=== PATIENT | male | born 1945 | race African-American/Black ===

== ENCOUNTER 2017-03-19 17:36 | Inpatient (IN) ==
--- NOTE | 2017-03-19 17:46 | Emergency Department Note ---
Disposition Clinical Impression: Opioid overdose Qualifiers: Encounter type: initial encounter Injury intent: accidental or unintentional Qualified Code(s): T40.2X1A - Poisoning by other opioids, accidental ( unintentional), initial encounter Altered mental status Qualifiers: Altered mental status type: unspecified Qualified Code(s): R41.82 - Altered mental status, unspecified Disposition: Admitted As Inpatient Condition: Fair [facility] Care Provider[facility] - Forms: ED Satisfaction Letter Time of Disposition: 22:28 Altered Mental Status HPI - General Chief Complaint: ED Altered Mental Status Stated Complaint: AMS Time Seen by Provider: 03/19/17 17:39 - History of Present Illness HPI Narrative: Mr. Weston, 72-year-old male, presents from the [place] for strokelike symptoms. He was given pain medication for neck pain and, on reassessment, was found to be somnolent, altered mentation, left-sided weakness. [facility] physician was concern for stroke and patient was transferred to this facility. Last known well: 14:20 [facility] 2016 patient had left parietal craniotomy secondary to nontraumatic intracranial hemorrhage for which he has subsequent chronic hemiplegia and hemiparesis. 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, seizure disorder, hypertension, history of prostate cancer, history of PTSD and reactive psychosis , COPD, emphysema Antiplatelet: Aspirin 81 mg by mouth daily Anticoagulant: None ROS: Not obtainable secondary to patient's mental status - Related Data Home Medications Medication Instructions Recorded Confirmed Aspirin 81 mg PO DAILY 10/01/15 10/01/15 Benztropine Mesylate 0.5 mg PO TID 10/01/15 10/01/15 Carbidopa/Levodopa [Carbidopa-Levo 1 tab PO TID 10/01/15 10/01/15 ER 25-100 Tab] Gabapentin [Neurontin] 600 mg PO HS 10/01/15 10/01/15 Ibuprofen [Motrin] 600 mg PO Q6HR PRN 10/01/15 10/01/15 Lisinopril/Hydrochlorothiazide 1 tab PO DAILY 10/01/15 10/01/15 [Zestoretic 10-12.5 mg Tablet] Meclizine [Antivert] 12.5 mg PO TID PRN 10/01/15 10/01/15 Melatonin [Melatin] 3 mg PO HS PRN 10/01/15 10/01/15 Multivitamin [Multivitamins] 1 tab PO DAILY 10/01/15 10/01/15 Oxazepam [Serax] 10 mg PO HS 10/01/15 10/01/15 PHENobarbital [Phenobarbital] 32.4 mg PO HS 10/01/15 10/01/15 Perphenazine [Trilafon] 2 mg PO HS 10/01/15 10/01/15 Phenytoin ER [Dilantin ER] 100 mg PO BID 10/01/15 10/01/15 Quetiapine Fumarate [Seroquel] 100 mg PO HS 10/01/15 10/01/15 Sertraline [Zoloft] 50 mg PO DAILY 10/01/15 10/01/15 Simvastatin [Zocor] 40 mg PO HS 10/01/15 10/01/15 Vitamin E 400 unit PO DAILY 10/01/15 10/01/15 Previous Rx's Medication Instructions Recorded Azithromycin [Zithromax] 500 mg PO Q24H #7 tablet 10/03/15 Ipratropium/Albuterol Sulfate 4 gm IH Q6H #2 aer.w.adap 10/03/15 [Combivent Respimat Inhal [place]] Cephalexin [Keflex] 500 mg PO TID #30 capsule 12/13/16 Allergies Allergy/AdvReac Type Severity Reaction Status Date / Time Oxytetracycline Allergy Hives Verified 10/01/15 11:52 [From Terramycin] Penicillins Allergy Hives Verified 10/01/15 11:52 Tetracycline Allergy Hives Verified 10/01/15 11:52 Limitations: ROS unobtainable due to patients medical condition Past Medical History - Past Medical History Medical history: Reports: cancer, CVA, hypertension, seizures, other Surgical history: Reports: non-contributory Psychiatric history: Reports: depression, PTSD - Social History Smoking Status: Former smoker Smokeless Tobacco Status: No Alcohol use: Reports: none Drug use: Reports: none Physical Exam Patient arrives via [place] fire department. His eyes are closed and he moans. Eyes open to sternal rub, equals are pinpoint and nonreactive. We provided 2 mg IV Narcan after which patient spontaneously opens his eyes. He is responsive to and localizes to pain. He does have left-sided facial droop however, with history of CVA and no family bedside, unsure if this is new or chronic. Code stroke called. Course Course Narrative: 18:05 [place] radiology No hemorrhage. Chronic findings detailed in his report. I discussed the patient with [facility] neurologist, Dr. Cisneros. We discussed the patient's history and presenting symptoms. Suspicion is from opiate caused altered mentation. He recommends CTA head and neck while in the ED. If there is a stenosis, then re-consult [facility] neurology. If not, then admit to [facility] for MRI. [facility] neurologist feels no need to use the helicopter. As of right now, code stroke is canceled. I discussed the patient with his son bedside using agreement with the plan of care. He is no additional questions at this time. Patient notes that both of his arms are hurting. Will provide Toradol and avoid opiates at this time given his initial presentation Patient's son, Michael Weston ALBINO RN, his bedside. He was updated to the situation and is agreement with the current plan of care. With the results of the CTA head and neck, I called [facility] transfer center and again spoke with Dr. Cisneros. 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 Dr. Cisneros believes this is an incidental finding and was not contributory to the patient's symptoms were treated earlier described. While on the phone call, we also had a 3-way conversation involving Dr. Flynn, [facility]. We discussed the patient, his findings, and previous clinical picture. Both Dr. Cisneros and Dr. Flynn agree this is no emergent. However, Dr. Flynn has taken the patient's name and his neurosurgery clinic will be calling the patient to schedule outpatient follow-up. I discussed the above with the patient and his son at bedside. What remains, is continued workup for the patient's initial presentation. There are no agreement for admission to this hospital with MRI. Per his son, patient is an aspiration risk. He should be on honey thick liquids , however patient refuses those foods. Michael has given the [facility] permission to provide a full diet on the condition that patient is sitting upright in a chair to minimize aspiration risk. I discussed the above with the admitting hospitalist. He agrees to accept the patient for continued evaluation and management. Head CT 03/19/17 17:39 IMPRESSION: 1. No acute intracranial abnormality. Stable appearing CT head compared to 12/13/2016 2. Presumed densely calcified aneurysm extending superior from the left supraclinoid region. Meningioma could potentially have this appearance. 3. Remote left frontotemporal craniotomy and right occipital craniectomy. Correlate with surgical history. Per stroke alert protocol stat results were phoned to Dr. Tyrese Chung Via phone 03/19/2017 6:03 pm. 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 There is a small residual noncalcified component with a triangular configuration noted best on axial image 44. Small lobulation along the posteromedial aspect of the distal right internal carotid artery as noted above. Although this could represent an infundibulum for the posterior communicating artery, there is no definitive artery arising from this nodule. A small aneurysm at this site should be considered. Otherwise no significant arterial narrowing. D/ / Cecil Whitney / Cecil Whitney Interpreting Provider: Cecil Whitney Neck CTA 03/19/17 18:19 IMPRESSION: Unremarkable CTA of the neck. Right lung lesion. CT chest recommended. Right thyroid lesion. This is likely benign. No follow-up imaging is necessary RECOMMENDATIONS: Managing Incidental Thyroid Nodule Detected at CT or MRI or US 1. Further evaluation by thyroid Ultrasound recommended for these incidental nodules: Patient Age 18 years or less - Any nodule. Patient Age 19-34 years old - Nodule 1 cm in size or greater Patient Age 35 years or more - Nodule 1.5 cm in size or greater 2. Follow up thyroid ultrasound also recommend in these scenarios -Solitary nodule with high risk imaging features (locally invasive nodule or suspicious lymph nodes) -Any nodule in a heterogeneous enlarged thyroid gland 3. NO further imaging is recommended in the following scenarios -No f/u imaging is recommended for ITNs not meeting the above criteria. -No US or f/u recommended for ITNs without high risk features in pts. with limited life expectancy or significant co-morbidities, unless clinically warranted. Note: These recommendations do not apply to pts. w/ increased risk for thyroid cancer or pts. with symptomatic thyroid disease. Recommendations for f/u of Incidental Thyroid Nodules (ITN) found on CT, MR, NM and Extrathyroidal US are based upon the ACR white paper and Jacobsen 3-tiered system for managing ITNs: J Am Barry Radiol. 2015 Mar;12(2): 143-50 D/ / Cecil Whitney / Cecil Whitney Interpreting Provider: Cecil Whitney Vital Signs Temperature 98.6 F 03/19/17 17:39 Pulse Rate 89 03/19/17 17:39 Respiratory Rate 24 03/19/17 17:39 Blood Pressure 132/73 03/19/17 17:39 O2 Sat by Pulse Oximetry 99 03/19/17 17:39 Temperature 98.6 F 03/19/17 17:39 Pulse Rate 63 03/19/17 22:27 Respiratory Rate 16 03/19/17 22:27 Blood Pressure 141/100 03/19/17 22:27 O2 Sat by Pulse Oximetry 97 03/19/17 22:27 Oxygen Delivery Oxygen Delivery Room Air Altered Mental Status - Medical Records Medical records reviewed: Yes I reviewed the patient's medical records. - Lab Data Result diagrams: 03/19/17 13:03 03/19/17 17:59 Lab Results 03/19/17 03/19/17 03/19/17 Range/Units 13:03 17:59 17:59 WBC 6.4 (4.3-11.1) K/mcL RBC 5.10 (4.19-5.50) M/mcL Hgb 15.5 (12.9-16.9) g/dL Hct 48.3 (37.5-50.1) % MCV 94.7 (83.0-100.0) fL MCH 30.4 (28.0-33.3) pg MCHC 32.1 (31.6-35.5) g/dL RDW 14.9 H (11.5-14.5) % Plt Count 243 (140-400) K/mcL MPV 10.8 (9.4-12.4) fL Immature Gran % 0.3 (0-4) % Seg Neutrophils % 54.3 % Lymphocytes % 35.1 % Monocytes % 7.2 % Eosinophils % 2.5 % Basophils % 0.6 % Neutrophils # 3.5 (1.6-8.9) K/mcL Lymphocytes # 2.3 (0.6-4.6) K/mcL Monocytes # 0.5 (0.0-1.3) K/mcL Eosinophils # 0.2 (0.0-0.6) K/mcL Basophils # 0.0 (0.0-0.2) K/mcL PT 12.8 H (9.4-12.1) Seconds INR 1.2 APTT 35.6 (26.0-36.0) Seconds Sodium 139 (136-145) mEq/L Potassium 4.0 (3.5-5.1) mEq/L Chloride 107 (98-107) mEq/L Carbon Dioxide 30 H (23-29) mEq/L BUN 10 (8-23) mg/dL Creatinine 0.54 L (0.70-1.30) mg/dL Est GFR ( Amer) > 60 (> 60) Est GFR (Non-Af Amer) > 60 (> 60) BUN/Creatinine Ratio 19 (6-26) Glucose 87 (70-105) mg/dL Calculated Osmolality 286 (280-300) Calcium 9.3 (8.6-10.3) mg/dL Troponin I (< 0.04) ng/mL Urine Color (Yellow) Urine Clarity (Clear) Urine pH (5.0-8.0) pH Units Ur Specific [place] (1.010-1.025) Urine Protein (Neg-Trace) mg/dL Urine Glucose (UA) (Normal) mg/dL Urine Ketones (Negative) mg/dL Urine Blood (Negative) Urine Nitrite (Negative) Urine Bilirubin (Negative) Urine Urobilinogen (Normal) mg/dL Ur Leukocyte Esterase (Negative) Urine Microscopic RBC (0-3) per hpf Urine Microscopic WBC (0-3) per hpf Ur Squamous Epith Cells (None-Few) per lpf Urine Bacteria (None-Few) per hpf Hyaline Casts Urine Yeast Ur Culture Indicated? (NO) Urine Opiates Screen (Dmfavn=442) ng/mL Ur Barbiturates Screen (Canezl=279) ng/mL Ur Phencyclidine Scrn (Cutoff=25) ng/mL Ur Amphetamines Screen (Neyvzt=4740) ng/mL U Benzodiazepines Scrn (Pgyqnb=692) ng/mL Urine Cocaine Screen (Cutoff= 300) ng/mL U Marijuana (THC) Screen (Cutoff = 50) ng/mL 03/19/17 03/19/17 03/19/17 Range/Units 17:59 19:06 19:06 WBC (4.3-11.1) K/mcL RBC (4.19-5.50) M/mcL Hgb (12.9-16.9) g/dL Hct (37.5-50.1) % MCV (83.0-100.0) fL MCH (28.0-33.3) pg MCHC (31.6-35.5) g/dL RDW (11.5-14.5) % Plt Count (140-400) K/mcL MPV (9.4-12.4) fL Immature Gran % (0-4) % Seg Neutrophils % % Lymphocytes % % Monocytes % % Eosinophils % % Basophils % % Neutrophils # (1.6-8.9) K/mcL Lymphocytes # (0.6-4.6) K/mcL Monocytes # (0.0-1.3) K/mcL Eosinophils # (0.0-0.6) K/mcL Basophils # (0.0-0.2) K/mcL PT (9.4-12.1) Seconds INR APTT (26.0-36.0) Seconds Sodium (136-145) mEq/L Potassium (3.5-5.1) mEq/L Chloride (98-107) mEq/L Carbon Dioxide (23-29) mEq/L BUN (8-23) mg/dL Creatinine (0.70-1.30) mg/dL Est GFR ( Amer) (> 60) Est GFR (Non-Af Amer) (> 60) BUN/Creatinine Ratio (6-26) Glucose (70-105) mg/dL Calculated Osmolality (280-300) Calcium (8.6-10.3) mg/dL Troponin I < 0.03 (< 0.04) ng/mL Urine Color Yellow (Yellow) Urine Clarity Cloudy A (Clear) Urine pH 7.0 (5.0-8.0) pH Units Ur Specific [place] 1.028 H (1.010-1.025) Urine Protein Negative (Neg-Trace) mg/dL Urine Glucose (UA) Normal (Normal) mg/dL Urine Ketones Negative (Negative) mg/dL Urine Blood Large H (Negative) Urine Nitrite Positive A (Negative) Urine Bilirubin Negative (Negative) Urine Urobilinogen Normal (Normal) mg/dL Ur Leukocyte Esterase Moderate H (Negative) Urine Microscopic RBC TNTC H (0-3) per hpf Urine Microscopic WBC 50-100 H (0-3) per hpf Ur Squamous Epith Cells Few (None-Few) per lpf Urine Bacteria Many H (None-Few) per hpf Hyaline Casts Test Not Performed Urine Yeast Test Not Performed Ur Culture Indicated? YES A (NO) Urine Opiates Screen Positive H (Qxpavr=901) ng/mL Ur Barbiturates Screen Positive H (Exmgfm=342) ng/mL Ur Phencyclidine Scrn Negative (Cutoff=25) ng/mL Ur Amphetamines Screen Negative (Qhyfpd=6752) ng/mL U Benzodiazepines Scrn Negative (Nrcemz=115) ng/mL Urine Cocaine Screen Negative (Cutoff= 300) ng/mL U Marijuana (THC) Screen Negative (Cutoff = 50) ng/mL - Radiology Data Radiology results reviewed: Yes I reviewed the patient's radiology results. - EKG Data EKG attestation: Yes I reviewed and interpreted this EKG. EKG results narrative: EKG dated 19 March 2017 at 17:40 interpreted as sinus bradycardia with a rate of 55. Left axis. Nonspecific ST-T changes. Compared to previous dated 12/13/2016 showing no acute ischemic changes of comparison. Critical Care Time Critical Care Time: Yes Total Critical Care Time: 35 Attestation: Critical care time 35 minutes to manage patient's acute renal status change. Attestation Statement - Attestation Attestation: Patient was seen with resident physician. I reviewed the history, physical, assessment and plan, and agree with the findings. I also personally evaluated this patient and had [id number] time with this patient. 72-year-old male transferred from the [facility] for possible stroke. Patient has a history of same, including what turns out to be craniotomy for intracranial hemorrhage. Last known well was approximately 2:30 this afternoon. Was unclear if his acute change in mental status and decreased responsiveness was related to narcotics administration or another stroke. He was given Narcan in route with minimal improvement in symptoms. Patient himself was somnolent on arrival, was able to answer questions and did much better after 2 mg of IV Narcan. He moved both upper extremities. He does not move his lower extremities. He appears to have a chronic left facial droop. He had initial slurred speech which continued but was improved after the Narcan. Remainder of review of systems was conducted to the best of our ability, but with patient's mental status made this difficult. Vital signs initially bradycardic with a heart rate of 55 with a stable blood pressure and afebrile. ENT [place] pupils otherwise unremarkable. Heart regular rhythm and rate. Lungs clear. Ab soft nontender. Extremities bilateral swelling in lower extremities he appears to be nonmobile. Upper extremities do not show swelling or traumatic injury. Neurologically initially somnolent patient woke up throughout his stay was able to move at least his upper extremities. Skin showed no obvious rashes. ED course initially stroke alert was called. CT the head revealed chronic ischemic changes but nothing acute and no blood. We spoke with neurology who did not feel he needed to do the robot, they did recommend doing an additional CT of the head and neck to look for carotid stenosis. I felt that this was negative he could stay here. Patient continually improved throughout his stay. Though this is likely a narcotics related issue, impossible to completely rule out a stroke considering his history. We reviewed the CT of the CTA findings with the neurologist and neurosurgeon at [facility]. A follow-up appointment with the neurosurgeon was arranged to address some of the concerns that were found on the scan. However they are comfortable with the patient staying here for the mental status workup completion. We notified the hospitalist service and arranged for admission. Agree with resident physician assessment and plan. Critical care time 35 minutes. NIH Stroke Scale - Level of Consciousness LOC: Alert - LOC Questions LOC Questions: Answers both correctly - LOC Commands LOC Commands: Performs both correctly - Best Gaze Best Gaze: Normal - Visual Visual: No visual loss - Facial Palsy Facial Palsy: Minor asymmetry on smiling, flattened nasolabial fold - Motor Arms Motor Arm-Left: No drift for 10 seconds Motor Arm-Right: No drift for 10 seconds - Motor Legs Motor Leg-Left: No effort against gravity, limb falls to bed, some movement Motor Leg-Right: No effort against gravity, limb falls to bed, some movement - Limb Ataxia Limb Ataxia: Present in TWO limbs - Sensory Sensory: Mild to moderate loss, "not as sharp" - Best Language Best Language: No aphasia - Dysarthria Dysarthria: Mild, slurs some words - Extinction and Inattention Extinction and Inattention: Normal - NIHSS Total Score NIHSS Total Score: 11
[2017-03-19 18:09] LABS: Basophils % 0.6 %; Eosinophils # 0.2 K/mcL (0.0-0.6); Eosinophils % 2.5 %; Hematocrit 48.3 % (37.5-50.1); Hemoglobin 15.5 g/dL (12.9-16.9); Immature Granulocytes % 0.3 % (0-4); Lymphocytes # 2.3 K/mcL (0.6-4.6); Lymphocytes % 35.1 %; Mean Corpuscular HGB Conc 32.1 g/dL (31.6-35.5); Mean Corpuscular Hemoglobin 30.4 pg (28.0-33.3); Mean Corpuscular Volume 94.7 fL (83.0-100.0); Mean Platelet Volume 10.8 fL (9.4-12.4); Monocytes # 0.5 K/mcL (0.0-1.3); Monocytes % 7.2 %; Neutrophils # 3.5 K/mcL (1.6-8.9); Platelet Count 243 K/mcL (140-400); Red Cell Distribution Width 14.9 % (11.5-14.5); Segmented Neutrophils % 54.3 %
[2017-03-19 18:25] LABS: INR 1.2; Prothrombin Time 12.8 Seconds (9.4-12.1)
[2017-03-19 18:27] LABS: Activated Partial Thrombo Time 35.6 Seconds (26.0-36.0)
[2017-03-19 18:45] LABS: BUN/Creatinine Ratio 19 (6-26); Blood Urea Nitrogen 10 mg/dL (8-23); Calcium 9.3 mg/dL (8.6-10.3); Carbon Dioxide 30 mEq/L (23-29); Chloride 107 mEq/L (98-107); Glucose 87 mg/dL (70-105); Osmolality,Calculated 286 (280-300); Sodium 139 mEq/L (136-145); eGFR For African Americans > 60 (> 60); eGFR For Non-African Americans > 60 (> 60)
[2017-03-19 19:15] LABS: Bilirubin,Urine Negative (Negative); Blood,Urine Large (Negative); Clarity,Urine Cloudy (Clear); Color,Urine Yellow (Yellow); Glucose,Urine (UA) Normal (Normal); Ketones,Urine Negative (Negative); Leukocyte Esterase,Urine Moderate (Negative); Nitrite,Urine Positive (Negative); Protein,Urine Negative (Neg-Trace); Specific Gravity,Urine 1.028 (1.010-1.025); Urobilinogen,Urine Normal (Normal)
[2017-03-19 19:18] LABS: WBC,Urine 50-100 per hpf (0-3)
[2017-03-19 19:22] LABS: Amphetamine Screen,Urine Negative ng/mL (Cutoff=1000); Barbiturate Screen,Urine Positive ng/mL (Cutoff=200); Benzodiazepines Screen,Urine Negative ng/mL (Cutoff=200); Cannabinoid Screen,Urine Negative ng/mL (Cutoff = 50); Cocaine Screen,Urine Negative ng/mL (Cutoff= 300); Opiate Screen,Urine Positive ng/mL (Cutoff=300); Phencyclidine Screen,Urine Negative ng/mL (Cutoff=25)
[2017-03-19 19:39] LABS: Squamous Epithelial Cell,Urine Few per lpf (None-Few)
[2017-03-19 19:40] LABS: Bacteria,Urine Many per hpf (None-Few); RBC,Urine TNTC per hpf (0-3)
[2017-03-19] MEDS ORDERED: Ketorolac 15 MG/ML VIAL IVP ONE (20:19)
[2017-03-19] MEDS ORDERED: Levofloxacin 500 MG/100 ML 500 MG/100 ML BAG IVPB ONE (22:40)
[2017-03-19] MEDS ORDERED: Naloxone 0.4 MG/ML INJ IVP PRN (23:26)
[2017-03-19] MEDS ORDERED: Melatonin 3 MG TABLET PO PRN (23:32)
--- NOTE | 2017-03-19 23:46 | Internal Med History&Physical ---
Date of Encounter: 03/19/17 Time of Encounter: 21:00 Assessment and Plan (1) Acute encephalopathy Current visit: Yes Status: Acute Patient has acute altered mental status. Mental status improved to baseline after Narcan use. Most likely due to opioid overdose. However, patient has history of cerebral hemorrhage. Need to rule out CVA. - CT head has been done, unremarkable - CT angio of the neck and the brain shows thrombosed aneurysm, [facility] neurosurgeon has been counseled, will follow up as outpatient - Place patient on continuous cardiac monitoring to rule out occult A. fib - Echocardiogram - CTA of neck and head shows no significant stenosis - Plan for MRI in a.m., hold neuro consult at this point until MRI results positive - NIHSS protocol for neuro evaluation - Nothing by mouth, IV fluid, waiting for swallowing evaluation (2) Cerebral aneurysm Current visit: Yes Status: Acute Patient will follow up with [facility] neurosurgery as outpatient. Avoid high blood pressure (3) Lung nodule Current visit: Yes Status: Acute Patient was found right upper lobe lung nodule on neck CTA. Need a chest CT. non urgent, can be ordered by dayshift (4) Hypertension Current visit: Yes Status: Acute Continue home medications, closely monitor BP Qualifiers: Hypertension type: essential hypertension Qualified Code(s): I10 - Essential (primary) hypertension (5) DVT prophylaxis Current visit: Yes Status: Acute Heparin subcutaneously (6) COPD (chronic obstructive pulmonary disease) Current visit: No Status: Chronic Stable, no wheezing. Continue home medications Qualifiers: COPD type: COPD with acute exacerbation Qualified Code(s): J44.1 - Chronic obstructive pulmonary disease with (acute) exacerbation (7) Parkinson disease Current visit: No Status: Chronic Continue home medications (8) Opioid overdose Current visit: Yes Status: Acute Keep neuro check and monitoring, Narcan as needed. Qualifiers: Encounter type: initial encounter Injury intent: accidental or unintentional Qualified Code(s): T40.2X1A - Poisoning by other opioids, accidental (unintentional), initial encounter Internal Medicine - H&P: HPI Chief complaint: Altered mental status Admitted From: Long-term Nursing Facility Plans for Post Hospital Care: Transfer Shelter Facility History of present illness: Mr. Weston is a 72 year old male with history of Parkinson disease, hypertension, history of cerebral hemorrhage S/P surgery, chronic shoulder pain, presented to ER for altered mental status. Patient is a poor historian, history is OBTAINED from transfer documentation and ER note. Patient has a chronic pain and takes opioid for pain. He was found altered mental status which has improved after Narcan use. Patient was admitted to rule out CVA/TIA as well. CTA ER shows thrombosed aneurysm, ER physician called [facility] neurosurgery and recommended follow -up as outpatient, appointment will be scheduled by neurosurgery. When I saw patient in the ER, he is awake alert, oriented 3, speech is slow due to Parkinson disease, clearly told me he is full code. Past Med Surg Social Fam HX - Past Medical History Medical history: cancer, CVA, hypertension, seizures, other Psychiatric history: depression, PTSD - Past Surgical History Surgical History: non-contributory - Social History Smoking Status: Former smoker Smokeless Tobacco Status: No Alcohol use: none Drug use: none - Family History Mother History Unknown: Yes Internal Medicine - H&P: Meds Aspirin 81 mg PO DAILY 10/01/15 [History] Benztropine Mesylate 0.5 mg PO TID 10/01/15 [History] Carbidopa/Levodopa [Carbidopa-Levo ER 25-100 Tab] 1 tab PO TID 10/01/15 [History ] Gabapentin [Neurontin] 600 mg PO HS 10/01/15 [History] Ibuprofen [Motrin] 600 mg PO Q6HR PRN 10/01/15 [History] Lisinopril/Hydrochlorothiazide [Zestoretic 10-12.5 mg Tablet] 1 tab PO DAILY [History] Meclizine [Antivert] 12.5 mg PO TID PRN 10/01/15 [History] Melatonin [Melatin] 3 mg PO HS PRN 10/01/15 [History] Multivitamin [Multivitamins] 1 tab PO DAILY 10/01/15 [History] Oxazepam [Serax] 10 mg PO HS 10/01/15 [History] PHENobarbital [Phenobarbital] 32.4 mg PO HS 10/01/15 [History] Perphenazine [Trilafon] 2 mg PO HS 10/01/15 [History] Phenytoin ER [Dilantin ER] 100 mg PO BID 10/01/15 [History] Quetiapine Fumarate [Seroquel] 100 mg PO HS 10/01/15 [History] Sertraline [Zoloft] 50 mg PO DAILY 10/01/15 [History] Simvastatin [Zocor] 40 mg PO HS 10/01/15 [History] Vitamin E 400 unit PO DAILY 10/01/15 [History] Azithromycin [Zithromax] 500 mg PO Q24H #7 tablet 10/03/15 [Rx] Ipratropium/Albuterol Sulfate [Combivent Respimat Inhal [place]] 4 gm IH Q6H #2 aer.w.adap 10/03/15 [Rx] Cephalexin [Keflex] 500 mg PO TID #30 capsule 12/13/16 [Rx] 3 Allergy/AdvReac Type Severity Reaction Status Date / Time Oxytetracycline Allergy Hives Verified 10/01/15 11:52 [From Terramycin] Penicillins Allergy Hives Verified 10/01/15 11:52 Tetracycline Allergy Hives Verified 10/01/15 11:52 All Systems PM: A 10-system review of systems was performed and is negative for pertinent findings except as documented above in the HPI. - Constitutional Vitals: Temp Pulse Resp BP Pulse Ox 98.6 F 63 18 125/69 97 03/19/17 17:39 03/19/17 23:28 03/19/17 23:31 03/19/17 23:31 03/19/17 22:27 General appearance: Present: A&O X 3, no acute distress, answers questions appropriately - Head Head exam: Present: normocephalic Additional comments: Scar of previous surgery - Eye Eye exam: Present: PERRL, conjuntiva pink, sclera anicteric Pupils: Present: PERRL - Neck Neck exam general surgery: Present: supple, trachea midline. Absent: lymphadenopathy - Respiratory Respiratory exam: Present: CTAB. Absent: accessory muscle use, rales, rhonchi, wheezes - Cardiovascular Cardiovascular exam: Present: RRR, +S1, +S2. Absent: diastolic murmur, gallop, rubs, systolic murmur - GI/Abdominal GI/Abdominal exam: Present: normal bowel sounds, soft, no peritoneal signs. Absent: distended, tenderness - Extremities Exam Extremities exam: Present: pedal edema (B/L pitting pedal edema), warm, radial pulses palpable and symmetrical. Absent: calf tenderness, cyanotic - Neurological Exam Neurological exam: Present: CN II-XII intact, motor sensory deficit (Motor 3-4/ 5 b/l UE, 1-2/5 B/L LE), oriented X3, no focal deficits, facial droop. Absent: pronater drift, speech deficit - Skin Skin exam: Present: dry, intact Internal Med - H&P Results - Labs CBC & Chem 7: 03/19/17 13:03 03/19/17 17:59 - EKG Data -: EKG Interpreted by Myself EKG shows normal: sinus rhythm Rate: normal
[2017-03-20] MEDS: D5% in 0.45% NACL 1,000 ML IVC SCH ×2 (00:57→15:03)
[2017-03-20] MEDS ORDERED: cefTRIAXone 1,000 MG in Water for inj. (sterile) 10 ML IVP ONE (01:15)
[2017-03-20] MEDS: Ipratropium/Albuterol Neb 3 ML IH SCH ×5 (01:25→22:19)
[2017-03-20] MEDS: Carbidopa/Levodopa 25/100 TABLET PO SCH ×4 (01:48→20:40)
[2017-03-20] MEDS: Albuterol Neb 0.63 MG/3 ML VIAL IH SCH ×4 (03:41→22:20)
[2017-03-20] MEDS: *HR* Heparin 5,000 UNIT/ML VIAL SQ SCH ×2 (06:24→17:16)
[2017-03-20 07:49] LABS: Basophils % 0.6 %; Eosinophils # 0.1 K/mcL (0.0-0.6); Hematocrit 46.3 % (37.5-50.1); Immature Granulocytes % 0.3 % (0-4); Lymphocytes # 1.6 K/mcL (0.6-4.6); Lymphocytes % 25.3 %; Mean Corpuscular HGB Conc 32.4 g/dL (31.6-35.5); Mean Corpuscular Hemoglobin 30.3 pg (28.0-33.3); Mean Corpuscular Volume 93.5 fL (83.0-100.0); Mean Platelet Volume 11.1 fL (9.4-12.4); Monocytes # 0.5 K/mcL (0.0-1.3); Monocytes % 7.8 %; Neutrophils # 4.1 K/mcL (1.6-8.9); Nucleated Red Blood Cells 0.3 /100 WBC (0); Platelet Count 244 K/mcL (140-400); Red Blood Count 4.95 M/mcL (4.19-5.50); Red Cell Distribution Width 14.7 % (11.5-14.5)
[2017-03-20] MEDS: Tiotropium 18 MCG inhalation IH SCH (07:56)
[2017-03-20 08:15] LABS: BUN/Creatinine Ratio 19 (6-26); Blood Urea Nitrogen 10 mg/dL (8-23); Calcium 9.2 mg/dL (8.6-10.3); Carbon Dioxide 26 mEq/L (23-29); Chloride 108 mEq/L (98-107); Chol/HDL Ratio 2.6 (0-4.9); Cholesterol 146 mg/dL (< 200); Glucose 100 mg/dL (70-105); HDL Cholesterol 57 mg/dL (40-59); LDL Cholesterol,Calculated 79 mg/dL (0-99); Magnesium 1.8 mg/dL (1.6-2.6); Osmolality,Calculated 289 (280-300); Potassium 3.9 mEq/L (3.5-5.1); Sodium 140 mEq/L (136-145); Triglycerides 52 mg/dL (< 150); eGFR For African Americans > 60 (> 60); eGFR For Non-African Americans > 60 (> 60)
[2017-03-20] MEDS: Budesonide/Formoterol 160/4.5 MDI IH SCH ×2 (10:32→22:19)
[2017-03-20] MEDS: Sennosides/Docusate Sodium TABLET PO SCH ×2 (11:20→20:40)
[2017-03-20] MEDS: Gabapentin 300 MG CAPSULE PO SCH ×3 (11:20→20:39)
[2017-03-20] MEDS: Aspirin 81 MG TAB.CHEW PO SCH (11:20)
--- NOTE | 2017-03-20 12:47 | Neurology - Consult Note ---
Date of Encounter: 03/20/17 Time of Encounter: 12:41 Assessment and Plan (1) Altered mental status Current Visit: Yes Status: Acute Patient apparently improved in terms of his mental status, back to baseline. He does have baseline dysarthria and right sided hemiparesis, left arm/hand tremors which are chronic in nature. CT of head showed no acute intracranial abnormality. Do not feel that there is new FUEL MANAGEMENT HANDLER pathology. Changes in mental status likley secondary to medical condition as well as possible side effects from medications. Patient also has what appears to be bilateral leg weakness, per history his has been chronic in nature and occurred about one year ago. He has no sensory level and no bladder and bowel dysfunction. Therefore would like him to follow up with [facility] in that regard. Meanwhile continue his seizure meds and sinemet for tremors. From neurology perspective, no further testing is necessary. Please continue medical and supportive care Qualifiers: Altered mental status type: unspecified Qualified Code(s): R41.82 - Altered mental status, unspecified (2) Parkinson disease Current Visit: No Status: Chronic Stable, has been on Sinemet prescribed by Dr. Beverly Graves during 2012. Will continue on that. He has quite large amplitude mixed postural, action and rest tremors. do have Parkinson features on the left side, with muscle rigidity. 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 (3) Paraplegia Current Visit: Yes Status: Acute This appears to be chronic in nature and has been going on for about one year, per history. He has no level of sensory loss. Both legs are edematous but no color changes and no sensory loss. No bladder and bowel dysfunction. DTRs are reduced in his legs. he is to follow up with [facility] physician in regard to this finding. History of Present Illness Chief complaint: aletered mental status and stroke like symptomss HPI: Mr. Weston is a 72 year old male with PMH significant for cerebral hemorrhage during , with right sided hemiparesis, and spasticity, s/p cerebral aneurysm repair, left craniotomy, history of seizure disorder, intentional tremor who developed mental status changes and transferred from [facility]. Patient is a poor historian. Per medical records, he was complaining of having neck pain and was given pain medication and then was found to be altered mentally and doctors at [facility] was concerned about stroke. His initial CT of head was reported stable findings when compared with a CT of head done during . 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 Some old encephalomalacia also seen on CT but nothing new. Clinically, at the time of this interview, he feels that feels good and asked when he will be go back home. He mentions that he suddenly became unable to walk about one year ago. he used to have right sided hemiparesis. Past Med Surg Social Fam HX - Past Medical History Medical history: cancer, COPD, CVA, diabetes, hyperlipidemia, hypertension, seizures, other Psychiatric history: anxiety, depression, PTSD - Past Surgical History Surgical History: non-contributory - Social History Smoking Status: Former smoker Smokeless Tobacco Status: No Alcohol use: none Drug use: none - Family History Mother History Unknown: Yes Medications and Allergies Aspirin 81 mg PO DAILY 10/01/15 [History] Gabapentin [Neurontin] 900 mg PO TID 10/01/15 [History] Melatonin [Melatin] 3 mg PO HS PRN 10/01/15 [History] Multivitamin [Multivitamins] 1 tab PO DAILY 10/01/15 [History] Oxazepam [Serax] 10 mg PO HS 10/01/15 [History] Phenytoin ER [Dilantin ER] 200 mg PO BID 10/01/15 [History] Quetiapine Fumarate [Seroquel] 75 mg PO HS 10/01/15 [History] Sertraline [Zoloft] 25 mg PO DAILY 10/01/15 [History] Simvastatin [Zocor] 20 mg PO HS 10/01/15 [History] Vitamin E 400 unit PO DAILY 10/01/15 [History] Ipratropium/Albuterol Sulfate [Combivent Respimat Inhal [place]] 4 gm IH Q6H #2 aer.w.adap 10/03/15 [Rx] Cephalexin [Keflex] 500 mg PO TID #30 capsule 12/13/16 [Rx] Acetaminophen [Pain Reliever] 975 mg PO DAILY 03/20/17 [History] Albuterol Neb [AccuNeb] 0.63 mg IH Q6HR 03/20/17 [History] Benztropine [Cogentin] 0.5 mg PO TID 03/20/17 [History] Bisacodyl [Dulcolax] 10 mg PO DAILY PRN 03/20/17 [History] Budesonide/Formoterol 160/4.5 [Symbicort 160/4.5] 1 puff IH BID 03/20/17 [ History] GuaiFENesin Liq [Robitussin Liq] 200 mg PO BID 03/20/17 [History] HYDROcodone/Acet 5/325 mg [[place]ater 5-325 mg] 1 tab PO BID PRN 03/20/17 [History] Primidone [Mysoline] 250 mg PO BID 03/20/17 [History] Propranolol [Inderal] 5 mg PO TID 03/20/17 [History] Ropinirole HCl [Requip] 3 mg PO HS 03/20/17 [History] Sennosides/Docusate Sodium [Senna-Docusate Sodium Tablet] 1 each PO BID [History] Tiotropium [Spiriva] 18 mcg IH 0700 03/20/17 [History] 3 Allergy/AdvReac Type Severity Reaction Status Date / Time Oxytetracycline Allergy Hives Verified 10/01/15 11:52 [From Terramycin] Penicillins Allergy Hives Verified 10/01/15 11:52 Tetracycline Allergy Hives Verified 10/01/15 11:52 All Systems: A 10-system review of systems was performed and is negative for pertinent findings except as documented above in the HPI. Physical Examination - Vital Signs Vital Signs: Initial Vital Signs Temp Pulse Resp BP Pulse Ox 98.6 F 89 24 132/73 99 03/19/17 17:39 03/19/17 17:39 03/19/17 17:39 03/19/17 17:39 03/19/17 17:39 - Constitutional General appearance: comfortable - Neurologic Sensorimotor examination: other (Grossly intact) Detailed motor examination: other (Patient has paraplegia and both legs unable to lift off the bed, and muscle power is 0-1/5 bilaterally. Arms are 4+/5 bilaterally. Large amplitue tremors noted tot he left hand, with inceased muscle tone. ) Motor examination - right side: 1/5: hip flexors, tibialis Anterior, quadriceps , toe extension (EHL), plantarflexion, 4/5: deltoids, biceps, triceps, wrist flexion, wrist extension, sde Motor examination - left side: 1/5: quadriceps, tibialis Anterior, toe extension (EHL), plantarflexion, 05/19: deltoids, biceps, triceps, wrist flexion, wrist extension, hip flexors, sde Detailed sensory examination: other (Grossly intact) Posture: other (None) Reflexes: Biceps: 2+, Triceps: 2+, Brachioradialis: 0, Patella: 0, Achilles: 0 Mental Status Examination: awake, alert, oriented to person, oriented to place, oriented to time, follows commands appropriately, answers questions appropriately, makes eye contact, follows simple commands Cranial nerve examination: PERRL, EOMI, visual arechiga intact, corneal reflexes brisk symmetrically, sensory to face intact, mastication intact, no facial asymmetry is present, no dysarthria, hearing is intact symmetrically, soft palate elevates bilaterally upon phonation, gag reflex intact, flexes SCM and trapezius muscles symmetrically with full power, tongue protrudes midline, no atrophy or facial fasiculations present Cerebellar examination: dysarthria Results - Laboratory Findings CBC and BMP: 03/20/17 07:13 03/20/17 07:13 Abnormal lab findings: Abnormal lab results RDW 14.7 % (11.5-14.5) H 03/20/17 07:13 Nucleated RBCs/100 WBC 0.3 /100 WBC (0) H 03/20/17 07:13 PT 12.8 Seconds (9.4-12.1) H 03/19/17 17:59 Chloride 108 mEq/L (98-107) H 03/20/17 07:13 Creatinine 0.54 mg/dL (0.70-1.30) L 03/20/17 07:13 Urine Clarity Cloudy (Clear) A 03/19/17 19:06 Ur Specific [place] 1.028 (1.010-1.025) H 03/19/17 19:06 Urine Blood Large (Negative) H 03/19/17 19:06 Urine Nitrite Positive (Negative) A 03/19/17 19:06 Ur Leukocyte Esterase Moderate (Negative) H 03/19/17 19:06 Urine Microscopic RBC TNTC per hpf (0-3) H 03/19/17 19:06 Urine Microscopic WBC 50-100 per hpf (0-3) H 03/19/17 19:06 Urine Bacteria Many per hpf (None-Few) H 03/19/17 19:06 Ur Culture Indicated? YES (NO) A 03/19/17 19:06 Urine Opiates Screen Positive ng/mL (Waqism=653) H 03/19/17 19:06 Ur Barbiturates Screen Positive ng/mL (Htldhz=234) H 03/19/17 19:06 Consult Discharge Plan - Plan [facility]: [facility] [Primary Care Provider] -
[2017-03-20] MEDS: Acetaminophen 325 MG TABLET PO PRN (17:16)
[2017-03-20] MEDS: cefTRIAXone 1,000 MG in Water for inj. (sterile) 10 ML IVPB SCH (17:16)
--- NOTE | 2017-03-20 19:38 | Internal Med Progress Note ---
Date of Encounter: 03/20/17 Time of Encounter: 19:36 - Assessment and plan (1) Acute encephalopathy Current Visit: Yes Status: Acute Assessment and plan: Patient appears to be back to baseline he does have a history of dysarthria and right-sided hemiparesis as well as left arm and hand tremors related to Parkinson's. I suspect his altered mental state may have been contributed by infectious process as well as sedating medications. CT of head showed no intracranial abnormality he is unable to have a MRI due to previous craniotomy and metal plate. He has been seen by neurology who advised no further testing at this time and continue with medical supportive care Patient did undergo a speech swallow eval recommended honey thickened liquids however patient refused (2) UTI (urinary tract infection) Current Visit: Yes Status: Acute Assessment and plan: Urinalysis is indicative of UTI we will initiate on Rocephin ending culture sensitivity Qualifiers: Urinary tract infection type: acute cystitis Hematuria presence: with hematuria Qualified Code(s): N30.01 - Acute cystitis with hematuria (3) Hypertension Current Visit: Yes Status: Acute Assessment and plan: Continue with all medications monitor blood pressure closely Qualifiers: Hypertension type: essential hypertension Qualified Code(s): I10 - Essential (primary) hypertension (4) Paraplegia Current Visit: Yes Status: Acute Assessment and plan: This appears to be chronic in nature been going on for about a year. Both lower extremities are edematous no sensory loss. No loss of bowel or bladder we will consult PT OT and [facility] (5) Parkinson disease Current Visit: No Status: Chronic Assessment and plan: We will continue with home medications (6) Cerebral aneurysm Current Visit: Yes Status: Acute Assessment and plan: History of cerebral aneurysm will follow-up at [facility] neurosurgery as outpatient monitor blood pressures (7) Lung nodule Current Visit: Yes Status: Acute Assessment and plan: Right upper lobe lung nodule found on neck CTA. We will need to follow up with chest CT (8) Opioid overdose Current Visit: Yes Status: Acute Assessment and plan: Patient has history of chronic pain and takes opioids for pain upon presentation he was lethargic he was given Narcan which did reverse. Caution with opioids and sedated medication Qualifiers: Encounter type: initial encounter Injury intent: accidental or unintentional Qualified Code(s): T40.2X1A - Poisoning by other opioids, accidental (unintentional), initial encounter (9) COPD (chronic obstructive pulmonary disease) Current Visit: No Status: Chronic Assessment and plan: Presently stable no wheezing We will continue with bronchodilators and oxygen Qualifiers: COPD type: COPD with acute exacerbation Qualified Code(s): J44.1 - Chronic obstructive pulmonary disease with (acute) exacerbation (10) DVT prophylaxis Current Visit: Yes Status: Acute Assessment and plan: Heparin subcutaneous - Subjective Interval history: Presently patient neurological status has returned to baseline. He does have baseline dysarthria as well as right-sided heated paresis left arm hand tremors. He has a history of Parkinson's as well. He has been experiencing lower extremity weakness which is been going on for approximately a year. He was seen by speech therapy today who recommended honey thickened liquids however patient refused so he will continue with regular diet regular liquids. He denies any pain or discomfort however he has complained of tremors in his hands He is hemodynamically stable at this time. - Constitutional Vitals: Temp Pulse Resp BP Pulse Ox 97.9 F 90 16 126/62 94 03/20/17 18:51 03/20/17 18:51 03/20/17 18:51 03/20/17 18:51 03/20/17 18:51 General appearance: Present: A&O X 3, no acute distress, answers questions appropriately - Head Head exam: Present: atraumatic, normocephalic - Eye Eye exam: Present: PERRL, conjuntiva pink, sclera anicteric Pupils: Present: PERRL - Neck Neck exam general surgery: Present: supple, trachea midline. Absent: lymphadenopathy - Respiratory Respiratory exam: Present: CTAB. Absent: accessory muscle use, rales, rhonchi, wheezes - Cardiovascular Cardiovascular exam: Present: RRR, +S1, +S2. Absent: diastolic murmur, gallop, rubs, systolic murmur - GI/Abdominal GI/Abdominal exam: Present: normal bowel sounds, soft, no peritoneal signs. Absent: distended, tenderness - Extremities Exam Extremities exam: Present: warm, radial pulses palpable and symmetrical. Absent : calf tenderness, cyanotic, pedal edema - Neurological Exam Neurological exam: Present: alert, CN II-XII intact, oriented X3, no focal deficits, speech deficit. Absent: pronater drift, facial droop - Expanded Neurological Exam Patient oriented to: Present: person, place, time Speech: Present: garbled (History of dysarthria ) Neuro motor strength exam: LUE: 5, RUE: 4, LLE: 4, RLE: 4 Coma Scale Eye Opening: Spontaneous Coma Scale Motor Response: Obeys Commands Coma Scale Verbal Response: Oriented Coma Scale Total: 15 - Skin Skin exam: Present: dry, intact Internal Medicine: Result - Labs CBC & Chem 7: 03/20/17 07:13 03/20/17 07:13 Labs: Short CBC 03/20/17 Range/Units 07:13 WBC 6.4 (4.3-11.1) K/mcL Hgb 15.0 (12.9-16.9) g/dL Hct 46.3 (37.5-50.1) % Plt Count 244 (140-400) K/mcL Neutrophils # 4.1 (1.6-8.9) K/mcL BMP 03/20/17 07:13 Sodium 140 Potassium 3.9 Chloride 108 H Carbon Dioxide 26 BUN 10 Creatinine 0.54 L Glucose 100 Calcium 9.2 - ABG Interpretation ABG results: PT/INR, D-dimer PT 12.8 Seconds (9.4-12.1) H 03/19/17 17:59 - Impressions Impressions Echocardiogram 03/20/17 23:38 Impressions: LVEF 60-65%. Mild left ventricular diastolic dysfunction. Mild concentric left ventricular hypertrophy. Normal right ventricular structure and function. No significant valvular dysfunction. No pulmonary hypertension. No evidence of PFO with agitated saline contrast. Left Ventricular Wall Motion: Rest Echo Findings All wall segments showed normal motion. Findings: Study Quality * Technically adequate exam. ECG Findings * Normal sinus rhythm. Left Ventricle * LVEF 60-65%. * Mild left ventricular diastolic dysfunction. * Mild concentric left ventricular hypertrophy. * Normal LV size. Right Ventricle * Normal right ventricular structure and function. Left Atrium * Normal left atrial size. Right Atrium * Normal right atrial size. Mitral Valve * Normal mitral valve structure. * No mitral stenosis. * Trace mitral regurgitation. Aortic Valve * No aortic regurgitation. * Trileaflet aortic valve. * No aortic stenosis. Tricuspid Valve * Normal tricuspid valve structure. * Trace tricuspid regurgitation. * Estimated RA pressure is 3 mmHg. * Estimated RVSP is 24 mmHg. * No pulmonary hypertension. Pulmonic Valve * Pulmonic valve is not well visualized. * No pulmonic stenosis. * No pulmonic regurgitation. Pulmonary Artery * Pulmonary artery not well visualized. Aorta * Normally sized aortic root for BSA. Pericardium * There is no pericardial effusion present. Interatrial Septum * No evidence of PFO by color Doppler. * No evidence of PFO with agitated saline contrast. IVC * Normal IVC dimensions and inspiratory collapse. Consult Discharge Plan - Plan [facility]errals: [facility] [Primary Care Provider] -
[2017-03-21] MEDS: Albuterol Neb 0.63 MG/3 ML VIAL IH SCH ×4 (03:51→21:24)
[2017-03-21] MEDS: Ipratropium/Albuterol Neb 3 ML IH SCH ×4 (03:51→21:25)
[2017-03-21 05:49] LABS: Basophils % 0.6 %; Eosinophils # 0.2 K/mcL (0.0-0.6); Eosinophils % 3.1 %; Hematocrit 45.2 % (37.5-50.1); Hemoglobin 14.7 g/dL (12.9-16.9); Immature Granulocytes % 0.2 % (0-4); Lymphocytes # 1.9 K/mcL (0.6-4.6); Lymphocytes % 36.1 %; Mean Corpuscular HGB Conc 32.5 g/dL (31.6-35.5); Mean Corpuscular Hemoglobin 30.6 pg (28.0-33.3); Mean Corpuscular Volume 94.2 fL (83.0-100.0); Mean Platelet Volume 11.1 fL (9.4-12.4); Monocytes # 0.5 K/mcL (0.0-1.3); Monocytes % 9.2 %; Neutrophils # 2.6 K/mcL (1.6-8.9); Platelet Count 235 K/mcL (140-400); Red Cell Distribution Width 14.8 % (11.5-14.5); Segmented Neutrophils % 50.8 %
[2017-03-21] MEDS: *HR* Heparin 5,000 UNIT/ML VIAL SQ SCH ×2 (06:03→17:11)
[2017-03-21 06:27] LABS: BUN/Creatinine Ratio 16 (6-26); Blood Urea Nitrogen 8 mg/dL (8-23); Calcium 8.9 mg/dL (8.6-10.3); Carbon Dioxide 26 mEq/L (23-29); Chloride 105 mEq/L (98-107); Glucose 79 mg/dL (70-105); Osmolality,Calculated 283 (280-300); Potassium 3.4 mEq/L (3.5-5.1); Sodium 138 mEq/L (136-145); eGFR For African Americans > 60 (> 60); eGFR For Non-African Americans > 60 (> 60)
[2017-03-21] MEDS: Sennosides/Docusate Sodium TABLET PO SCH ×2 (10:25→21:02)
[2017-03-21] MEDS: Carbidopa/Levodopa 25/100 TABLET PO SCH ×3 (10:25→21:01)
[2017-03-21] MEDS: Gabapentin 300 MG CAPSULE PO SCH ×3 (10:25→21:02)
[2017-03-21] MEDS: Aspirin 81 MG TAB.CHEW PO SCH (10:26)
[2017-03-21] MEDS: Budesonide/Formoterol 160/4.5 MDI IH SCH ×2 (11:09→21:25)
[2017-03-21] MEDS: Tiotropium 18 MCG inhalation IH SCH (11:10)
[2017-03-21] MEDS: cefTRIAXone 1,000 MG in Water for inj. (sterile) 10 ML IVPB SCH (17:11)
[2017-03-21] MEDS: Acetaminophen 325 MG TABLET PO PRN (17:11)
--- NOTE | 2017-03-21 17:17 | Neurology Progress Note ---
Date of Encounter: 03/21/17 Time of Encounter: 17:15 Assessment and Plan (1) Altered mental status Current Visit: Yes Status: Acute Improved and back to baseline. MRI of brain showed no acute intracranial abnormality. 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 He has no level of sensory loss. Both legs are edematous but no color changes and no sensory loss. No bladder and bowel dysfunction. DTRs are reduced in his legs. he is able to lift left leg off the bed now therefore, left leg hip flexion is at least 3/5. Patient is to follow up with PCP regarding the chronic leg weakness Subjective Principal diagnosis: Altered mental status Interval history: Patient seen and examined. He is doing well, and is fully oriented. He has baseline dysarthria, but denies any significant discomforts. His left leg is able to lift off the bed today which is considered improvement. MRI of brain reviewed and showed no acute intracranial abnormality Objective - Constitutional Vitals: Temp Pulse Resp BP Pulse Ox 98.3 F 73 18 110/64 96 03/21/17 11:48 03/21/17 11:48 03/21/17 11:48 03/21/17 11:48 03/21/17 11:48 - Neurological Exam Sensorimotor examination: Present: other (Grossly intact) Motor Examination: Present: other (Patient has paraplegia and both legs unable to lift off the bed, and muscle power is 0-1/5 bilaterally. Arms are 4+/5 bilaterally. Large amplitue tremors noted tot he left hand, with inceased muscle tone. ) Motor examination - right side: 1/5: hip flexors, tibialis Anterior, quadriceps , toe extension (EHL), plantarflexion, 4/5: deltoids, biceps, triceps, wrist flexion, wrist extension, appliance servicer Motor examination - left side: 3/5: quadriceps, tibialis Anterior, toe extension (EHL), plantarflexion, 4/5: deltoids, biceps, triceps, wrist flexion, wrist extension, hip flexors, appliance servicer Sensation intact: Present: other (Grossly intact) Posture: Present: other (None) Mental Status Examination: Present: awake, alert, oriented to person, oriented to place, oriented to time, follows commands appropriately, answers questions appropriately, makes eye contact, follows simple commands Cranial nerve examination: Present: PERRL, EOMI, visual arechiga intact, corneal reflexes brisk symmetrically, sensory to face intact, mastication intact, no facial asymmetry is present, no dysarthria, hearing is intact symmetrically, soft palate elevates bilaterally upon phonation, gag reflex intact, flexes SCM and trapezius muscles symmetrically with full power, tongue protrudes midline, no atrophy or facial fasiculations present Cerebellar examination: Present: dysarthria Results - Laboratory Findings CBC and BMP: 03/21/17 04:48 03/21/17 04:48 Abnormal lab findings: Abnormal lab results RDW 14.8 % (11.5-14.5) H 03/21/17 04:48 Nucleated RBCs/100 WBC 0.3 /100 WBC (0) H 03/20/17 07:13 PT 12.8 Seconds (9.4-12.1) H 03/19/17 17:59 Potassium 3.4 mEq/L (3.5-5.1) L 03/21/17 04:48 Creatinine 0.51 mg/dL (0.70-1.30) L 03/21/17 04:48 POC Glucose 102 (58-89) H 03/20/17 16:51 Urine Clarity Cloudy (Clear) A 03/19/17 19:06 Ur Specific [place] 1.028 (1.010-1.025) H 03/19/17 19:06 Urine Blood Large (Negative) H 03/19/17 19:06 Urine Nitrite Positive (Negative) A 03/19/17 19:06 Ur Leukocyte Esterase Moderate (Negative) H 03/19/17 19:06 Urine Microscopic RBC TNTC per hpf (0-3) H 03/19/17 19:06 Urine Microscopic WBC 50-100 per hpf (0-3) H 03/19/17 19:06 Urine Bacteria Many per hpf (None-Few) H 03/19/17 19:06 Ur Culture Indicated? YES (NO) A 03/19/17 19:06 Urine Opiates Screen Positive ng/mL (Ocysyz=914) H 03/19/17 19:06 Ur Barbiturates Screen Positive ng/mL (Ivirlg=054) H 03/19/17 19:06 Consult Discharge Plan - Plan [facility]errals: [facility] [Primary Care Provider] -
--- NOTE | 2017-03-21 20:33 | Internal Med Progress Note ---
Date of Encounter: 03/21/17 Time of Encounter: 12:00 - Assessment and plan (1) Acute encephalopathy Current Visit: Yes Status: Acute Assessment and plan: Patient appears to be back to baseline MRI of brain shows no acute intracranial abnormality. Patient did undergo a speech swallow eval recommended honey thickened liquids however patient refused (2) UTI (urinary tract infection) Current Visit: Yes Status: Acute Assessment and plan: Culture preliminary showed Proteus mirabilis gram-positive cocci will continue her Rocephin awaiting sensitivity. Would like to have sensitivity results before transferring back to [place] in order to complete antibiotic follow-up Qualifiers: Urinary tract infection type: acute cystitis Hematuria presence: with hematuria Qualified Code(s): N30.01 - Acute cystitis with hematuria (3) Hypertension Current Visit: Yes Status: Acute Assessment and plan: Continue with all medications monitor blood pressure closely Qualifiers: Hypertension type: essential hypertension Qualified Code(s): I10 - Essential (primary) hypertension (4) Paraplegia Current Visit: Yes Status: Acute Assessment and plan: This appears to be chronic in nature been going on for about a year. Both lower extremities are edematous no sensory loss. Patient to follow-up at the [place] (5) Parkinson disease Current Visit: No Status: Chronic Assessment and plan: We will continue with home medications (6) Cerebral aneurysm Current Visit: Yes Status: Acute Assessment and plan: History of cerebral aneurysm will follow-up at [facility] neurosurgery as outpatient monitor blood pressures (7) Lung nodule Current Visit: Yes Status: Acute Assessment and plan: Right upper lobe lung nodule found on neck CTA. Review of records this appears to be known and chronic (8) Opioid overdose Current Visit: Yes Status: Acute Assessment and plan: Patient has history of chronic pain and takes opioids for pain upon presentation he was lethargic he was given Narcan which did reverse. Caution with opioids and sedated medication Qualifiers: Encounter type: initial encounter Injury intent: accidental or unintentional Qualified Code(s): T40.2X1A - Poisoning by other opioids, accidental (unintentional), initial encounter (9) COPD (chronic obstructive pulmonary disease) Current Visit: No Status: Chronic Assessment and plan: Presently stable no wheezing We will continue with bronchodilators and oxygen Qualifiers: COPD type: COPD with acute exacerbation Qualified Code(s): J44.1 - Chronic obstructive pulmonary disease with (acute) exacerbation (10) DVT prophylaxis Current Visit: Yes Status: Acute Assessment and plan: Heparin subcutaneous - Time Spent With Patient less than 15 minutes - Subjective Interval history: Patient has returned to physical baseline. He denies any pain or discomfort. He is hemodynamically stable at this time. - Constitutional Vitals: Temp Pulse Resp BP Pulse Ox 98.1 F 65 17 104/67 93 03/21/17 20:05 03/21/17 20:05 03/21/17 20:05 03/21/17 20:05 03/21/17 20:05 General appearance: Present: A&O X 3, no acute distress, answers questions appropriately - Head Head exam: Present: atraumatic, normocephalic - Eye Eye exam: Present: PERRL, conjuntiva pink, sclera anicteric Pupils: Present: PERRL - Neck Neck exam general surgery: Present: supple, trachea midline. Absent: lymphadenopathy - Respiratory Respiratory exam: Present: CTAB. Absent: accessory muscle use, rales, rhonchi, wheezes - Cardiovascular Cardiovascular exam: Present: RRR, +S1, +S2. Absent: diastolic murmur, gallop, rubs, systolic murmur - GI/Abdominal GI/Abdominal exam: Present: normal bowel sounds, soft, no peritoneal signs. Absent: distended, tenderness - Extremities Exam Extremities exam: Present: warm, radial pulses palpable and symmetrical. Absent : calf tenderness, cyanotic, pedal edema - Neurological Exam Neurological exam: Present: CN II-XII intact, oriented X3, no focal deficits. Absent: pronater drift, facial droop, speech deficit - Skin Skin exam: Present: dry, intact Internal Medicine: Result - Labs CBC & Chem 7: 03/21/17 04:48 03/21/17 04:48 Labs: Short CBC 03/21/17 Range/Units 04:48 WBC 5.1 (4.3-11.1) K/mcL Hgb 14.7 (12.9-16.9) g/dL Hct 45.2 (37.5-50.1) % Plt Count 235 (140-400) K/mcL Neutrophils # 2.6 (1.6-8.9) K/mcL BMP 03/21/17 04:48 Sodium 138 Potassium 3.4 L Chloride 105 Carbon Dioxide 26 BUN 8 Creatinine 0.51 L Glucose 79 Calcium 8.9 - ABG Interpretation ABG results: PT/INR, D-dimer PT 12.8 Seconds (9.4-12.1) H 03/19/17 17:59 - Impressions Impressions Brain MRI 03/21/17 15:39 IMPRESSION: No acute intracranial abnormality. Small old lacunar infarct in the left basal ganglia. Status post left frontotemporal craniotomy/craniectomy, with subjacent encephalomalacia in the inferior left frontal and anterior left temporal lobes. Status post right occipital craniectomy. 2.8 x 3.4 x 2.5 cm fluid collection at the right cerebellopontine angle, likely related to an arachnoid cyst. 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 D/ / 03/21/2017 16:57:49 Fredo Jasmine MD / darleen Interpreting Provider: Fredo Jasmine MD - Diagnostic Studies Other Images Additional comments: Head CT 03/19/17 17:39 IMPRESSION: 1. No acute intracranial abnormality. Stable appearing CT head compared to 12/13/2016 2. Presumed densely calcified aneurysm extending superior from the left supraclinoid region. Meningioma could potentially have this appearance. 3. Remote left frontotemporal craniotomy and right occipital craniectomy. Correlate with surgical history. Per stroke alert protocol stat results were phoned to Dr. Tyrese Chung Via phone 03/19/2017 6:03 pm. 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 There is a small residual noncalcified component with a triangular configuration noted best on axial image 44. Small lobulation along the posteromedial aspect of the distal right internal carotid artery as noted above. Although this could represent an infundibulum for the posterior communicating artery, there is no definitive artery arising from this nodule. A small aneurysm at this site should be considered. Otherwise no significant arterial narrowing. D/ / Cecil Whitney / Cecil Whitney Interpreting Provider: Cecil Whitney Neck CTA 03/19/17 18:19 IMPRESSION: Unremarkable CTA of the neck. Right lung lesion. CT chest recommended. Right thyroid lesion. This is likely benign. No follow-up imaging is necessary RECOMMENDATIONS: Managing Incidental Thyroid Nodule Detected at CT or MRI or US 1. Further evaluation by thyroid Ultrasound recommended for these incidental nodules: Patient Age 18 years or less - Any nodule. Patient Age 19-34 years old - Nodule 1 cm in size or greater Patient Age 35 years or more - Nodule 1.5 cm in size or greater 2. Follow up thyroid ultrasound also recommend in these scenarios -Solitary nodule with high risk imaging features (locally invasive nodule or suspicious lymph nodes) -Any nodule in a heterogeneous enlarged thyroid gland 3. NO further imaging is recommended in the following scenarios -No f/u imaging is recommended for ITNs not meeting the above criteria. -No US or f/u recommended for ITNs without high risk features in pts. with limited life expectancy or significant co-morbidities, unless clinically warranted. Note: These recommendations do not apply to pts. w/ increased risk for thyroid cancer or pts. with symptomatic thyroid disease. Recommendations for f/u of Incidental Thyroid Nodules (ITN) found on CT, MR, NM and Extrathyroidal US are based upon the ACR white paper and Jacobsen 3-tiered system for managing ITNs: J Am Barry Radiol. 2015 Mar;12(2): 143-50 D/ / Cecil Whitney / Cecil Whitney Interpreting Provider: Cecil Whitney Echocardiogram 03/20/17 23:38 Impressions: LVEF 60-65%. Mild left ventricular diastolic dysfunction. Mild concentric left ventricular hypertrophy. Normal right ventricular structure and function. No significant valvular dysfunction. No pulmonary hypertension. No evidence of PFO with agitated saline contrast. Left Ventricular Wall Motion: Rest Echo Findings All wall segments showed normal motion. Findings: Study Quality * Technically adequate exam. ECG Findings * Normal sinus rhythm. Left Ventricle * LVEF 60-65%. * Mild left ventricular diastolic dysfunction. * Mild concentric left ventricular hypertrophy. * Normal LV size. Right Ventricle * Normal right ventricular structure and function. Left Atrium * Normal left atrial size. Right Atrium * Normal right atrial size. Mitral Valve * Normal mitral valve structure. * No mitral stenosis. * Trace mitral regurgitation. Aortic Valve * No aortic regurgitation. * Trileaflet aortic valve. * No aortic stenosis. Tricuspid Valve * Normal tricuspid valve structure. * Trace tricuspid regurgitation. * Estimated RA pressure is 3 mmHg. * Estimated RVSP is 24 mmHg. * No pulmonary hypertension. Pulmonic Valve * Pulmonic valve is not well visualized. * No pulmonic stenosis. * No pulmonic regurgitation. Pulmonary Artery * Pulmonary artery not well visualized. Aorta * Normally sized aortic root for BSA. Pericardium * There is no pericardial effusion present. Interatrial Septum * No evidence of PFO by color Doppler. * No evidence of PFO with agitated saline contrast. IVC * Normal IVC dimensions and inspiratory collapse. Brain MRI 03/21/17 15:39 IMPRESSION: No acute intracranial abnormality. Small old lacunar infarct in the left basal ganglia. Status post left frontotemporal craniotomy/craniectomy, with subjacent encephalomalacia in the inferior left frontal and anterior left temporal lobes. Status post right occipital craniectomy. 2.8 x 3.4 x 2.5 cm fluid collection at the right cerebellopontine angle, likely related to an arachnoid cyst. 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 D/ / 03/21/2017 16:57:49 Fredo Jasmine MD / darleen Interpreting Provider: Fredo Jasmine MD Consult Discharge Plan - Plan [facility]: [facility] [Primary Care Provider] -
[2017-03-22] MEDS: Acetaminophen 325 MG TABLET PO PRN ×2 (00:43→18:16)
[2017-03-22] MEDS: Albuterol Neb 0.63 MG/3 ML VIAL IH SCH ×4 (04:57→21:23)
[2017-03-22] MEDS: Ipratropium/Albuterol Neb 3 ML IH SCH ×4 (04:58→21:21)
[2017-03-22] MEDS: *HR* Heparin 5,000 UNIT/ML VIAL SQ SCH ×2 (05:09→18:10)
[2017-03-22 06:23] LABS: Basophils % 0.6 %; Eosinophils # 0.1 K/mcL (0.0-0.6); Hematocrit 44.8 % (37.5-50.1); Hemoglobin 14.4 g/dL (12.9-16.9); Immature Granulocytes % 0.4 % (0-4); Lymphocytes # 1.6 K/mcL (0.6-4.6); Lymphocytes % 34.3 %; Mean Corpuscular HGB Conc 32.1 g/dL (31.6-35.5); Mean Corpuscular Hemoglobin 30.2 pg (28.0-33.3); Mean Corpuscular Volume 93.9 fL (83.0-100.0); Mean Platelet Volume 11.3 fL (9.4-12.4); Monocytes # 0.5 K/mcL (0.0-1.3); Monocytes % 11.6 %; Neutrophils # 2.3 K/mcL (1.6-8.9); Platelet Count 229 K/mcL (140-400); Red Blood Count 4.77 M/mcL (4.19-5.50); Segmented Neutrophils % 50.1 %
[2017-03-22 06:52] LABS: BUN/Creatinine Ratio 20 (6-26); Blood Urea Nitrogen 10 mg/dL (8-23); Calcium 9.1 mg/dL (8.6-10.3); Carbon Dioxide 27 mEq/L (23-29); Chloride 107 mEq/L (98-107); Glucose 88 mg/dL (70-105); Osmolality,Calculated 288 (280-300); Potassium 3.6 mEq/L (3.5-5.1); Sodium 140 mEq/L (136-145); eGFR For African Americans > 60 (> 60); eGFR For Non-African Americans > 60 (> 60)
[2017-03-22] MEDS: Aspirin 81 MG TAB.CHEW PO SCH (08:35)
[2017-03-22] MEDS: Sennosides/Docusate Sodium TABLET PO SCH ×2 (08:35→21:44)
[2017-03-22] MEDS: Carbidopa/Levodopa 25/100 TABLET PO SCH ×3 (08:37→21:44)
[2017-03-22] MEDS: Gabapentin 300 MG CAPSULE PO SCH ×3 (08:38→21:45)
[2017-03-22] MEDS: Tiotropium 18 MCG inhalation IH SCH (08:40)
[2017-03-22] MEDS: Budesonide/Formoterol 160/4.5 MDI IH SCH ×2 (10:38→21:21)
[2017-03-22] MEDS ORDERED: cefTRIAXone 1,000 MG in Water for inj. (sterile) 20 ML 10 ML IVPB SCH (18:30)
--- NOTE | 2017-03-22 19:52 | Electrocardiograph Report ---
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
--- NOTE | 2017-03-22 20:09 | Internal Med Progress Note ---
Date of Encounter: 03/22/17 Time of Encounter: 12:30 - Assessment and plan (1) Acute encephalopathy Current Visit: Yes Status: Acute Assessment and plan: Patient appears to be back to baseline MRI of brain shows no acute intracranial abnormality. Patient did undergo a speech swallow eval recommended honey thickened liquids however patient refused (2) UTI (urinary tract infection) Current Visit: Yes Status: Acute Assessment and plan: Culture preliminary showed Proteus mirabilis gram-positive cocci will continue her Rocephin awaiting sensitivity. Would like to have sensitivity results before transferring back to [place] in order to complete antibiotic follow-up Qualifiers: Urinary tract infection type: acute cystitis Hematuria presence: with hematuria Qualified Code(s): N30.01 - Acute cystitis with hematuria (3) Cerebral aneurysm Current Visit: Yes Status: Acute Assessment and plan: History of cerebral aneurysm will follow-up at [facility] as outpatient monitor blood pressures (4) Hypertension Current Visit: Yes Status: Acute Assessment and plan: Continue with all medications monitor blood pressure closely Qualifiers: Hypertension type: essential hypertension Qualified Code(s): I10 - Essential (primary) hypertension (5) Opioid overdose Current Visit: Yes Status: Acute Assessment and plan: Patient has history of chronic pain and takes opioids for pain upon presentation he was lethargic he was given Narcan which did reverse. Caution with opioids and sedated medication Qualifiers: Encounter type: initial encounter Injury intent: accidental or unintentional Qualified Code(s): T40.2X1A - Poisoning by other opioids, accidental (unintentional), initial encounter (6) Paraplegia Current Visit: Yes Status: Acute Assessment and plan: This appears to be chronic in nature been going on for about a year. Both lower extremities are edematous no sensory loss. Patient to follow-up at the [place] (7) COPD (chronic obstructive pulmonary disease) Current Visit: No Status: Chronic Assessment and plan: per hx. No evidence of exacerbation. Cont breathing treatments Qualifiers: COPD type: COPD with acute exacerbation Qualified Code(s): J44.1 - Chronic obstructive pulmonary disease with (acute) exacerbation (8) Parkinson disease Current Visit: No Status: Chronic Assessment and plan: per hx. Cont home medications (9) DVT prophylaxis Current Visit: Yes Status: Acute Assessment and plan: Heparin subcutaneous - Subjective Interval history: Seen and examined at beside, patient is new to me. Information obtained form chart review and patient report. Patient says he feels better and would like to discharge home today. He does c/o slight dysuria. - Constitutional Vitals: Temp Pulse Resp BP Pulse Ox 98.5 F 84 16 122/74 93 03/22/17 19:09 03/22/17 19:09 03/22/17 19:09 03/22/17 19:09 03/22/17 19:09 General appearance: Present: A&O X 3, no acute distress, answers questions appropriately - Head Head exam: Present: atraumatic, normocephalic - Eye Eye exam: Present: PERRL, conjuntiva pink, sclera anicteric Pupils: Present: PERRL - Neck Neck exam general surgery: Present: supple, trachea midline. Absent: lymphadenopathy - Respiratory Respiratory exam: Present: CTAB. Absent: accessory muscle use, rales, rhonchi, wheezes - Cardiovascular Cardiovascular exam: Present: RRR, +S1, +S2. Absent: diastolic murmur, gallop, rubs, systolic murmur - GI/Abdominal GI/Abdominal exam: Present: normal bowel sounds, soft, no peritoneal signs. Absent: distended, tenderness - Extremities Exam Extremities exam: Present: warm, radial pulses palpable and symmetrical. Absent : calf tenderness, cyanotic, pedal edema - Neurological Exam Neurological exam: Present: CN II-XII intact, oriented X3. Absent: pronater drift, facial droop, speech deficit Additional comments: + tremors - Skin Skin exam: Present: dry, intact Internal Medicine: Result - Labs CBC & Chem 7: 03/22/17 05:49 03/22/17 05:49 Labs: Short CBC 03/22/17 Range/Units 05:49 WBC 4.7 (4.3-11.1) K/mcL Hgb 14.4 (12.9-16.9) g/dL Hct 44.8 (37.5-50.1) % Plt Count 229 (140-400) K/mcL Neutrophils # 2.3 (1.6-8.9) K/mcL BMP 03/22/17 05:49 Sodium 140 Potassium 3.6 Chloride 107 Carbon Dioxide 27 BUN 10 Creatinine 0.49 L Glucose 88 Calcium 9.1 - ABG Interpretation ABG results: PT/INR, D-dimer PT 12.8 Seconds (9.4-12.1) H 03/19/17 17:59 Consult Discharge Plan - Plan [facility]errals: [facility] [Primary Care Provider] -
[2017-03-22] MEDS: cefTRIAXone 1,000 MG in Water for inj. (sterile) 20 ML 10 ML IVPB SCH (21:46)
[2017-03-23] MEDS: Ipratropium/Albuterol Neb 3 ML IH SCH ×4 (04:19→21:35)
[2017-03-23] MEDS: Albuterol Neb 0.63 MG/3 ML VIAL IH SCH ×4 (04:20→21:27)
[2017-03-23] MEDS: *HR* Heparin 5,000 UNIT/ML VIAL SQ SCH ×2 (05:45→16:12)
[2017-03-23] MEDS: Sennosides/Docusate Sodium TABLET PO SCH ×2 (09:43→20:45)
[2017-03-23] MEDS: Carbidopa/Levodopa 25/100 TABLET PO SCH ×3 (09:43→20:44)
[2017-03-23] MEDS: Gabapentin 300 MG CAPSULE PO SCH ×3 (09:43→20:45)
[2017-03-23] MEDS: Aspirin 81 MG TAB.CHEW PO SCH (09:44)
[2017-03-23] MEDS: Tiotropium 18 MCG inhalation IH SCH (10:59)
[2017-03-23] MEDS: Budesonide/Formoterol 160/4.5 MDI IH SCH ×2 (11:00→21:35)
--- NOTE | 2017-03-23 17:20 | Internal Med Progress Note ---
Date of Encounter: 03/23/17 Time of Encounter: 14:00 - Assessment and plan (1) UTI (urinary tract infection) Current Visit: Yes Status: Acute Assessment and plan: Culture preliminary showed Proteus mirabilis and staph epi. Cont Rocephin for proteus. Macrobid for staph Qualifiers: Urinary tract infection type: acute cystitis Hematuria presence: with hematuria Qualified Code(s): N30.01 - Acute cystitis with hematuria (2) Acute encephalopathy Current Visit: Yes Status: Acute Assessment and plan: Patient appears to be back to baseline MRI of brain shows no acute intracranial abnormality. Patient did undergo a speech swallow eval recommended honey thickened liquids however patient refused (3) Cerebral aneurysm Current Visit: Yes Status: Acute Assessment and plan: History of cerebral aneurysm. Cont BP control. Follow-up with [facility] outpatient (4) Hypertension Current Visit: Yes Status: Acute Assessment and plan: per hx. BP variable. Cont home BP medications. Monitor BP and titrate PRN Qualifiers: Hypertension type: essential hypertension Qualified Code(s): I10 - Essential (primary) hypertension (5) Opioid overdose Current Visit: Yes Status: Acute Assessment and plan: Patient has history of chronic pain and takes opioids for pain upon presentation he was lethargic he was given Narcan which did reverse. Caution with opioids and sedated medication Qualifiers: Encounter type: initial encounter Injury intent: accidental or unintentional Qualified Code(s): T40.2X1A - Poisoning by other opioids, accidental (unintentional), initial encounter (6) Paraplegia Current Visit: Yes Status: Acute Assessment and plan: This appears to be chronic in nature been going on for about a year. Both lower extremities are edematous no sensory loss. Patient to follow-up at the [place] (7) COPD (chronic obstructive pulmonary disease) Current Visit: No Status: Chronic Assessment and plan: per hx. No evidence of exacerbation. Cont breathing treatments Qualifiers: COPD type: COPD with acute exacerbation Qualified Code(s): J44.1 - Chronic obstructive pulmonary disease with (acute) exacerbation (8) Parkinson disease Current Visit: No Status: Chronic Assessment and plan: per hx. Cont home medications (9) DVT prophylaxis Current Visit: Yes Status: Acute Assessment and plan: Heparin subcutaneous - Subjective Interval history: Seen and examined at beside; says he feels about the same. No issues overnight. [facility] - Constitutional Vitals: Temp Pulse Resp BP Pulse Ox 98.2 F 65 16 107/69 96 03/23/17 15:35 03/23/17 15:35 03/23/17 16:33 03/23/17 15:35 03/23/17 16:33 General appearance: Present: A&O X 3, no acute distress, answers questions appropriately - Head Head exam: Present: atraumatic, normocephalic - Eye Eye exam: Present: PERRL, conjuntiva pink, sclera anicteric Pupils: Present: PERRL - Neck Neck exam general surgery: Present: supple, trachea midline. Absent: lymphadenopathy - Respiratory Respiratory exam: Present: CTAB. Absent: accessory muscle use, rales, rhonchi, wheezes - Cardiovascular Cardiovascular exam: Present: RRR, +S1, +S2. Absent: diastolic murmur, gallop, rubs, systolic murmur - GI/Abdominal GI/Abdominal exam: Present: normal bowel sounds, soft, no peritoneal signs. Absent: distended, tenderness - Extremities Exam Extremities exam: Present: pedal edema, warm, radial pulses palpable and symmetrical. Absent: calf tenderness, cyanotic - Neurological Exam Neurological exam: Present: CN II-XII intact, oriented X3, no focal deficits. Absent: pronater drift, facial droop, speech deficit Additional comments: tremors - Skin Skin exam: Present: dry, intact Internal Medicine: Result - Labs CBC & Chem 7: 03/22/17 05:49 03/22/17 05:49 - ABG Interpretation ABG results: PT/INR, D-dimer PT 12.8 Seconds (9.4-12.1) H 03/19/17 17:59 Consult Discharge Plan - Plan [facility]errals: [facility] [Primary Care Provider] -
[2017-03-23] MEDS: cefTRIAXone 1,000 MG in Water for inj. (sterile) 20 ML 10 ML IVPB SCH (23:04)
[2017-03-24] MEDS: Albuterol Neb 0.63 MG/3 ML VIAL IH SCH ×2 (04:03→10:35)
[2017-03-24] MEDS: Ipratropium/Albuterol Neb 3 ML IH SCH ×2 (04:04→11:02)
[2017-03-24] MEDS: *HR* Heparin 5,000 UNIT/ML VIAL SQ SCH (05:40)
[2017-03-24] MEDS ORDERED: Nitrofurantoin (BID) 100 MG CAPSULE PO SCH (08:00)
[2017-03-24] MEDS: Carbidopa/Levodopa 25/100 TABLET PO SCH ×2 (10:12→14:02)
[2017-03-24] MEDS: Aspirin 81 MG TAB.CHEW PO SCH (10:13)
[2017-03-24] MEDS: Sennosides/Docusate Sodium TABLET PO SCH (10:13)
[2017-03-24] MEDS: Gabapentin 300 MG CAPSULE PO SCH ×2 (10:14→14:02)
[2017-03-24] MEDS: Tiotropium 18 MCG inhalation IH SCH (10:35)
[2017-03-24 10:51] VITALS: BP 116/69
[2017-03-24] MEDS: Budesonide/Formoterol 160/4.5 MDI IH SCH (11:02)
--- NOTE | 2017-03-24 13:48 | Discharge Summary ---
Date of Encounter: 03/24/17 Time of Encounter: 13:45 - Discharge Diagnosis (1) UTI (urinary tract infection) Priority: Primary Status: Acute Comments: UA indicative of UTI. Urine cx showed Proteus mirabilis and staph epi. Initially treated with IV. ATB changed to Levaquin for proteus. Macrobid for staph Qualifiers: Urinary tract infection type: acute cystitis Hematuria presence: with hematuria Qualified Code(s): N30.01 - Acute cystitis with hematuria (2) Acute encephalopathy Priority: Primary Status: Acute Comments: Patient appears to be back to baseline MRI of brain shows no acute intracranial abnormality. Altered mental status likely due to UTI. Patient did undergo a speech swallow eval recommended honey thickened liquids however patient refused (3) Cerebral aneurysm Priority: Secondary Status: Chronic Comments: history of cerebral aneurysm. Cont BP control. Follow-up with [facility] outpatient (4) Hypertension Priority: Primary Status: Acute Comments: per hx. BP variable. Cont home BP medications. Monitor BP and titrate PRN Qualifiers: Hypertension type: essential hypertension Qualified Code(s): I10 - Essential (primary) hypertension (5) Opioid overdose Priority: Primary Status: Acute Comments: Patient has history of chronic pain and takes opioids for pain upon presentation he was lethargic he was given Narcan which did reverse. Caution with opioids and sedated medication Qualifiers: Encounter type: initial encounter Injury intent: accidental or unintentional Qualified Code(s): T40.2X1A - Poisoning by other opioids, accidental (unintentional), initial encounter (6) Paraplegia Priority: Secondary Status: Chronic Comments: This appears to be chronic in nature been going on for about a year. Both lower extremities are edematous no sensory loss. [facility] (7) COPD (chronic obstructive pulmonary disease) Priority: Secondary Status: Chronic Comments: per hx. No evidence of exacerbation. Cont breathing treatments Qualifiers: COPD type: COPD with acute exacerbation Qualified Code(s): J44.1 - Chronic obstructive pulmonary disease with (acute) exacerbation (8) Parkinson disease Priority: Secondary Status: Chronic Comments: per hx. Cont home medications - Discharge Medications Prescriptions: Levofloxacin [Levaquin] 500 mg PO DAILY #4 tablet Nitrofurantoin (BID) [Macrobid] 100 mg PO BIDWM #14 capsule Home Medications: Aspirin 81 mg PO DAILY 10/01/15 [History] Gabapentin [Neurontin] 900 mg PO TID 10/01/15 [History] Melatonin [Melatin] 3 mg PO HS PRN 10/01/15 [History] Multivitamin [Multivitamins] 1 tab PO DAILY 10/01/15 [History] Oxazepam [Serax] 10 mg PO HS 10/01/15 [History] Phenytoin ER [Dilantin ER] 200 mg PO BID 10/01/15 [History] Quetiapine Fumarate [Seroquel] 75 mg PO HS 10/01/15 [History] Sertraline [Zoloft] 25 mg PO DAILY 10/01/15 [History] Simvastatin [Zocor] 20 mg PO HS 10/01/15 [History] Vitamin E 400 unit PO DAILY 10/01/15 [History] Ipratropium/Albuterol Sulfate [Combivent Respimat Inhal [place]] 4 gm IH Q6H #2 aer.w.adap 10/03/15 [Rx] Acetaminophen [Pain Reliever] 975 mg PO DAILY 03/20/17 [History] Albuterol Neb [AccuNeb] 0.63 mg IH Q6HR 03/20/17 [History] Benztropine [Cogentin] 0.5 mg PO TID 03/20/17 [History] Bisacodyl [Dulcolax] 10 mg PO DAILY PRN 03/20/17 [History] Budesonide/Formoterol 160/4.5 [Symbicort 160/4.5] 1 puff IH BID 03/20/17 [ History] GuaiFENesin Liq [Robitussin Liq] 200 mg PO BID 03/20/17 [History] HYDROcodone/Acet 5/325 mg [Orestes 5-325 mg] 1 tab PO BID PRN 03/20/17 [History] Primidone [Mysoline] 250 mg PO BID 03/20/17 [History] Propranolol [Inderal] 5 mg PO TID 03/20/17 [History] Ropinirole HCl [Requip] 3 mg PO HS 03/20/17 [History] Sennosides/Docusate Sodium [Senna-Docusate Sodium Tablet] 1 each PO BID [History] Tiotropium [Spiriva] 18 mcg IH 0700 03/20/17 [History] Levofloxacin [Levaquin] 500 mg PO DAILY #4 tablet 03/24/17 [Rx] Nitrofurantoin (BID) [Macrobid] 100 mg PO BIDWM #14 capsule 03/24/17 [Rx] Allergies/Adverse Reactions: 3 Allergy/AdvReac Type Severity Reaction Status Date / Time Oxytetracycline Allergy Hives Verified 10/01/15 11:52 [From Terramycin] Penicillins Allergy Hives Verified 10/01/15 11:52 Tetracycline Allergy Hives Verified 10/01/15 11:52 Procedures/tests Complete & Pending: Procedures Performed prior 72 hours Category Date Time Status MR head/brain wo con [MR] Routine MRI 03/21/17 15:39 Completed Date of admission: 03/19/17 23:26 [facility] care physician: [facility] Consults: 03/19/17 23:34 Consult to Speech Therapy [CONS] Stat Comment: Evaluate, develop and implement POC Reason for Consult: Swallow evaluation Call Completed: No 03/20/17 01:45 Consult to Machine [employer]pper [CONS] Routine Reason for SW Consult: PATIENT OF [facility]. 03/20/17 15:48 Consult to Occupational Therapy [CONS] Routine Comment: Evaluate, develop and implement POC Reason for Consult: chronic left sided weakness, unable to ambulate, flaccid BLE. Consult to Physical Therapy [CONS] Routine Comment: Evaluate, develop and implement POC Reason for Consult: chronic left sided weakness, unable to ambulate, flaccid BLE. Discharging clinician: Heather Jefferson Anticipated date of discharge: 03/24/17 - Patient Status Disposition: Transfer [facility] Functional capacity at discharge: bed bound Overall status at discharge: patient is back to baseline - Discharge Instructions Instructions: Peripheral Vascular Disorders (DC) [facility] Provider[facility] - - Diet and Activity Activity: as per physical therapy Diet: advance to your usual diet Hospital course: Mr. Weston is a 72 year old male - Time Spent with Patient Total time spent providing and/or coordinating discharge services: - Constitutional Vitals: Temp Pulse Resp BP Pulse Ox 98.8 F 77 16 116/69 94 03/24/17 10:48 03/24/17 10:48 03/24/17 11:04 03/24/17 10:48 03/24/17 11:04 General appearance: Present: A&O X 3, no acute distress, answers questions appropriately
== END 2017-03-24 14:49 | DRG 917 ==
LOC: EMEROO 17:36 → 3BNU 17:36
PROVIDERS: ADMIT Internal Medicine; ATTEND Registered Nurse